=== PATIENT | male | born 1955 | race Hispanic/Latino ===

== ENCOUNTER 2017-03-14 09:46 | Outpatient (CLI) | payer OTHER ==
--- NOTE | 2017-03-14 12:19 | Magnetic Resonance Report ---
MRI LUMBAR SPINE WITHOUT CONTRAST HISTORY: Intervertebral disc displacement, lumbar region. TECHNIQUE: axial T1, T2. sagittal T1,T2, STIR. COMPARISON: none. FINDINGS: The conus terminates at L1-2. No signal abnormality or mass. The cauda equina is within normal limits. Normal height and alignment of the lumbar vertebra. 2 cm vertebral body hemangioma is noted at L4. No acute fracture or suspicious bone lesion. There is mild diffuse disc desiccation without significant narrowing. Moderate facet arthropathy with hypertrophic changes is noted throughout the lumbar region. L1-2: No significant abnormality with the disc. Mild facet hypertrophy and hypertrophy of ligamentum flavum. L2-3: No significant abnormality with the disc. Mild facet hypertrophy and hypertrophy of ligamentum flavum. L3-4: No significant abnormality with the disc. Mild facet hypertrophy and hypertrophy of ligamentum flavum. L4-5: Mild diffuse posterior bulging disc is identified. There is a moderate to large broad based midline to left paracentral disc protrusion which effaces the anterior thecal sac. This results in moderate central canal stenosis measuring 6-7 mm in AP dimension. There is mild facet arthropathy and hypertrophy ligamentum flavum. Right neural foraminal narrowing is estimated at 50-75%. Left neural foraminal narrowing is estimated at 75% or greater. L5-S1: No significant abnormality with the disc. Mild facet hypertrophy and hypertrophy of ligamentum flavum. IMPRESSION: Mild to moderate multilevel lumbar spondylosis. Broad-based midline to left paracentral disc protrusion at L4-5 resulting in moderate central canal stenosis and moderate to severe bilateral neural foraminal stenosis as described.
== END 2017-03-14 09:47 | disposition home or self-care (01) ==
LOC: MRI 09:46
PROVIDERS: ATTEND Orthopaedic Surgery Orthopaedic Trauma
DX: M48.061 Spinal stenosis, lumbar region without neurogenic claudication (principal); M47.896 Other spondylosis, lumbar region; M51.26 Other intervertebral disc displacement, lumbar region; M12.88 Other specific arthropathies, not elsewhere classified, other specified site
CPT/HCPCS: 72148